=== PATIENT | female | born 1940 | race African-American/Black ===

== ENCOUNTER 2019-01-23 21:40 | Inpatient (IN) | payer OTHER, MEDICARE ==
[~2019-01-23] VITALS: Ht 165.1 cm; Wt 71.3 kg
[~2019-01-23 21:40] MED LIST: AMLO10TA80 PO; ASPI-1393 PO; CLOP75TA33 PO; FURO40TA5 PO; GLIP10TA10 PO; LOSA50TA41 PO; MELO-106 PO; METF-416 PO; METO-411 PO; SIMV20TA6 PO
[2019-01-24] VITALS (30 sets, daily range): BP systolic 106–160; BP diastolic 57–106
[2019-01-24] MEDS ORDERED: MAGNESIUM 2 G PREMIX 50 ML IV ONE (00:30)
[2019-01-24] MEDS ORDERED: CALCIUM GLUCONATE 100MG/ML 10ML VIAL IV ONE (00:30)
[2019-01-24 00:49] LABS: BASOPHILS % 0.6 % (0.0-2.0); EOSINOPHILS % 0.5 % (0.0-5.0); HEMATOCRIT. 36.6 % (36.0-48.0); HEMOGLOBIN. 12.1 g/dL (12.0-16.0); LYMPHOCYTES % 11.8 % (20.0-50.0); MEAN CORPUSCULAR HEMOGLOBIN 29.2 pg (28.0-32.0); MEAN CORPUSCULAR VOLUME 88.7 fL (81.0-99.0); MONOCYTES % 3.8 % (2.0-8.0); NEUTROPHILS % 83.3 % (40.0-76.0); PLATELET 197 x1000/uL (130-400); RED BLOOD CELL COUNT 4.12 mill/uL (4.2-5.4); RED CELL DISTRIBUTION WIDTH 14.9 % (11.6-14.6)
[2019-01-24 00:54] LABS: CHLORIDE 105 mEq/L (98-107)
[2019-01-24] MEDS: CALCIUM GLUCONATE 2,000 MG in SODIUM CHLORIDE 0.9% 100 ML IV SCH ×2 (01:04→01:05)
[2019-01-24] MEDS ORDERED: ASPIRIN 325MG EC TABLET PO ONE (01:30)
[2019-01-24] MEDS ORDERED: DILTIAZEM HCL 5MG/ML 5ML VIAL IV ONE (02:00)
[2019-01-24] MEDS ORDERED: AMIODARONE HCL 900 MG in DEXT 5% WATER 482 ML IV ONE ×2 (02:15→02:45)
[2019-01-24] MEDS ORDERED: AMIODARONE HCL 150 MG in DEXT 5% WATER 100 ML IV ONE (02:15)
[2019-01-24] MEDS ORDERED: IPRATROPIUM/ALBUTEROL 0.5-3(2.5)MG/3ML NEB HHN PRN (09:45)
[2019-01-24] MEDS ORDERED: DEXTROSE 50% WATER 50ML SYRINGE IV PRN (09:45)
[2019-01-24] MEDS ORDERED: ATOR20TA65 PO (09:52)
[2019-01-24] MEDS ORDERED: ENOXAPARIN 40MG/0.4ML SYR SUBCUT SCH (10:00)
[2019-01-24 11:49] LABS: HEMATOCRIT 34.6 % (36.0-48.0); HEMOGLOBIN 11.4 g/dL (12.0-16.0); MEAN CORPUSCULAR HEMOGLOBIN 28.9 pg (28.0-32.0); PLATELET 205 x1000/uL (130-400); RED BLOOD CELL COUNT 3.93 mill/uL (4.2-5.4); RED CELL DISTRIBUTION WIDTH 14.9 % (11.6-14.6)
[2019-01-24] MEDS ORDERED: POTASSIUM CHLORIDE INJ 40 MEQ in DEXT 5% WATER 250 ML IV SCH (12:00)
[2019-01-24] MEDS: BLOOD SUGAR DIAGNOSTIC STRIP TEST SCH ×3 (12:12→21:47)
[2019-01-24] MEDS: INSULIN LISPRO 100 UNITS/ML SUBCUT SCH ×3 (12:12→21:00)
[2019-01-24] MEDS ORDERED: POTASSIUM CHLORIDE 20MEQ TABLET SR PO ONE (12:45)
[2019-01-24] MEDS: ASPIRIN 81MG EC TABLET PO SCH (13:12)
[2019-01-24] MEDS: DILTIAZEM HCL 60MG TABLET PO SCH ×2 (13:12→22:00)
[2019-01-24] MEDS ORDERED: ENOXAPARIN 30MG/0.3ML SYR SUBCUT SCH (13:15)
[2019-01-24] MEDS ORDERED: METOPROLOL TARTRATE 50MG TABLET PO NR (15:15)
[2019-01-24] MEDS ORDERED: DILTIAZEM HCL 5MG/ML 5ML VIAL IV PRN (15:15)
[2019-01-24] MEDS ORDERED: MORPHINE SULFATE 2 MG/ML CPJ (NOT FOR IM USE) IV PRN (15:30)
[2019-01-24] MEDS ORDERED: DIPHENHYDRAMINE 50MG/ML VIAL IV PRN (15:30)
[2019-01-24] MEDS ORDERED: LORAZEPAM 2MG/ML CPJ IV PRN (15:30)
[2019-01-24] MEDS ORDERED: ONDANSETRON HCL 4MG/2ML INJ IV PRN (15:30)
[2019-01-24] MEDS: FAMOTIDINE 20MG/2ML VIAL IV SCH (16:11)
[2019-01-24] MEDS: AMLODIPINE 10MG TABLET PO SCH (16:11)
[2019-01-24 17:19] LABS: PROTHROMBIN TIME 10.6 sec (9.6-11.0)
[2019-01-24] MEDS: METOPROLOL TARTRATE 50MG TABLET PO SCH (21:00)
[2019-01-24 21:22] LABS: CLARITY URINE CLEAR (CLEAR); COLOR URINE YELLOW (YELLOW); KETONES URINE NEGATIVE (NEGATIVE); LEUKOCYTE ESTERASE URINE 1+ (NEGATIVE); NITRITE URINE NEGATIVE (NEGATIVE); OCCULT BLOOD URINE NEGATIVE (NEGATIVE); PROTEIN URINE NEGATIVE (NEGATIVE); SPECIFIC GRAVITY URINE 1.018 (1.005-1.030)
[2019-01-24] MEDS: ATORVASTATIN CALCIUM 40MG TABLET PO SCH (21:47)
[2019-01-25] VITALS (43 sets, daily range): BP systolic 83–168; BP diastolic 36–120
[2019-01-25 05:19] LABS: BASOPHILS % 0.4 % (0.0-2.0); EOSINOPHILS % 1.5 % (0.0-5.0); HEMATOCRIT. 36.9 % (36.0-48.0); LYMPHOCYTES % 25.4 % (20.0-50.0); MEAN CORPUSCULAR HEMOGLOBIN 29.2 pg (28.0-32.0); MEAN CORPUSCULAR VOLUME 89.5 fL (81.0-99.0); NEUTROPHILS % 67.7 % (40.0-76.0); PLATELET 188 x1000/uL (130-400); RED BLOOD CELL COUNT 4.12 mill/uL (4.2-5.4); RED CELL DISTRIBUTION WIDTH 14.9 % (11.6-14.6)
[2019-01-25 05:55] LABS: PROTHROMBIN TIME 10.1 sec (9.6-11.0)
[2019-01-25] MEDS: DILTIAZEM HCL 60MG TABLET PO SCH (06:33)
[2019-01-25] MEDS: INSULIN LISPRO 100 UNITS/ML SUBCUT SCH ×4 (08:20→20:08)
[2019-01-25] MEDS: BLOOD SUGAR DIAGNOSTIC STRIP TEST SCH ×4 (08:35→20:08)
[2019-01-25] MEDS: METOPROLOL TARTRATE 50MG TABLET PO SCH ×2 (08:40→20:08)
[2019-01-25] MEDS: FAMOTIDINE 20MG/2ML VIAL IV SCH (08:56)
[2019-01-25] MEDS: ASPIRIN 81MG EC TABLET PO SCH (08:56)
[2019-01-25] MEDS: AMLODIPINE 10MG TABLET PO SCH (08:56)
[2019-01-25] MEDS ORDERED: CLOPIDOGREL 75MG TABLET PO SCH (09:00)
[2019-01-25] MEDS ORDERED: ENOXAPARIN 80MG/0.8ML SYR SUBCUT SCH (09:00)
[2019-01-25] MEDS ORDERED: CLONIDINE 0.1MG TABLET PO PRN (15:00)
[2019-01-25] MEDS: ATORVASTATIN CALCIUM 40MG TABLET PO SCH (20:08)
== END 2019-01-25 22:30 | disposition short-term general hospital (02) | DRG 280 ==
LOC: ER 21:40 → CVICU 01-24 02:27 → EDBEDREQDT 01-24 02:32 → EDBEDREQTM 01-24 02:32 → EDBEDREQSVC 01-24 02:32 → EDBEDREQ 01-24 02:32 → ENRESERV 01-24 08:04
PROVIDERS: ADMIT Internal Medicine; ATTEND Internal Medicine
DX: I21.4 Non-ST elevation (NSTEMI) myocardial infarction (principal); I50.43 Acute on chronic combined systolic (congestive) and diastolic (congestive) heart failure; D68.59 Other primary thrombophilia; N17.9 Acute kidney failure, unspecified; D64.9 Anemia, unspecified; E11.65 Type 2 diabetes mellitus with hyperglycemia; E78.00 Pure hypercholesterolemia, unspecified; E78.5 Hyperlipidemia, unspecified; E87.6 Hypokalemia; I25.2 Old myocardial infarction; I11.0 Hypertensive heart disease with heart failure; I25.10 Atherosclerotic heart disease of native coronary artery without angina pectoris; I25.5 Ischemic cardiomyopathy; I34.0 Nonrheumatic mitral (valve) insufficiency; I44.7 Left bundle-branch block, unspecified; I48.0 Paroxysmal atrial fibrillation; Z82.49 Family history of ischemic heart disease and other diseases of the circulatory system; Z90.711 Acquired absence of uterus with remaining cervical stump; Z95.5 Presence of coronary angioplasty implant and graft; Z79.899 Other long term (current) drug therapy; Z79.82 Long term (current) use of aspirin; Z79.84 Long term (current) use of oral hypoglycemic drugs
CPT/HCPCS: 36415; 71045; 80048; 80061; 80076; 81003; 82962; 83036; 83735; 83880; 84443; 84484; 85027; 93005; 93306; 93970; 99291; J0282; J0610; J1650; J1815; J2060; J3475; J3480; J3490; J7050; J7060; J7620